=== PATIENT | female | born 1985 | race African-American/Black ===

== ENCOUNTER 2019-10-10 13:19 | Emergency (ER) | payer SELFPAY ==
[2019-10-10] MEDS ORDERED: Ondansetron 4 MG/2 ML SDV IVPUSH ONE (14:00)
[2019-10-10] MEDS ORDERED: Sodium Chloride 0.9% 10 ML Syringe FLUSH PRN (14:00)
[2019-10-10] MEDS ORDERED: Sodium Chloride 0.9% 1,000 ML IV ONE (14:00)
--- NOTE | 2019-10-10 14:04 | EDM.PDOC ---
ED HPI GENERAL MEDICAL PROBLEM - General Chief Complaint: PEDIATRIC PHYSICAL THERAPIST Problem Stated Complaint: WEAK AND VOMNITING NEW Time Seen by Provider: 10/10/19 13:53 Source of Information: Reports: Patient History Limitations: Reports: No Limitations - History of Present Illness INITIAL COMMENTS - FREE TEXT/NARRATIVE: This unfortunate 33-year-old white female who presents emergency Department today with complaints of vomiting. 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 No dysuria no frequency no urgency no vaginal bleeding no abdominal pain no hematemesis - Related Data Allergies Allergy/AdvReac Type Severity Reaction Status Date / Time No Known Allergies Allergy Verified 10/10/19 13:54 Home Meds: Home Meds Ondansetron [Zofran ODT] 4 mg PO TID PRN #8 tab.dis 10/10/19 [Rx] ED ROS GENERAL - Review of Systems Review Of Systems: See Below Constitutional: Denies: Fever, Chills GI/Abdominal: Reports: Nausea, Vomiting. Denies: Abdominal Pain : Denies: Discharge, Urinary Retention ED EXAM, GI/ABD - Physical Exam Exam: See Below Exam Limited By: No Limitations General Appearance: Alert, WD/WN, Mild Distress Nose: Normal Inspection, Normal Mucosa, No Blood Throat/Mouth: Normal Inspection, Normal Lips, Normal Teeth, Normal Gums, Normal Oropharynx, Normal Voice, No Airway Compromise Head: Atraumatic, Normocephalic Respiratory/Chest: No Respiratory Distress, Lungs Clear, Normal Breath Sounds, No Accessory Muscle Use, Chest Non-Tender Cardiovascular: Normal Peripheral Pulses, Regular Rate, Rhythm, No Edema, No Gallop, No JVD, No Murmur, No Rub GI/Abdominal Exam: Normal Bowel Sounds, Soft, Non-Tender, No Organomegaly, No Distention, No Abnormal Bruit, No Mass, Pelvis Stable Back Exam: Normal Inspection, Full Range of Motion, NT Extremities: Normal Inspection, Normal Range of Motion, Non-Tender, Normal Capillary Refill, No Pedal Edema Neurological: Alert, Oriented Skin Exam: Warm, Dry Course - Vital Signs Last Recorded V/S: Last Vital Signs Temp 98.7 F 10/10/19 13:55 Pulse 60 10/10/19 13:55 Resp 18 10/10/19 13:55 BP 116/73 10/10/19 13:55 Pulse Ox 100 10/10/19 13:55 - Orders/Labs/Meds Orders: Active Orders 24 hr Category Date Time Status CULTURE URINE [RM] Stat Lab 10/10/19 14:31 Received Sodium Chloride 0.9% [Saline Flush] Med 10/10/19 14:00 Active 10 ml FLUSH ASDIRECTED PRN Saline Lock Insert [OM.PC] Stat Oth 10/10/19 14:00 Ordered Medication Orders Sodium Chloride (Saline Flush) 10 ml FLUSH ASDIRECTED PRN PRN Reason: Keep Vein Open Last Admin: 10/10/19 14:33 Dose: 10 ml Labs: Laboratory Tests 10/10/19 10/10/19 10/10/19 Range/Units 14:17 14:17 14:31 WBC 4.53 (3.98-10.04) K/mm3 RBC 4.89 (3.98-5.22) M/mm3 Hgb 14.7 (11.2-15.7) gm/dl Hct 41.9 (34.1-44.9) % MCV 85.7 (79.4-94.8) fl MCH 30.1 (25.6-32.2) pg MCHC 35.1 (32.2-35.5) g/dl RDW Std Deviation 36.9 (36.4-46.3) fL Plt Count 334 (182-369) K/mm3 MPV 8.1 L (9.4-12.3) fl Neut % (Auto) 39.9 (34.0-71.1) % Lymph % (Auto) 33.6 (19.3-51.7) % [place] % (Auto) 15.9 H (4.7-12.5) % Eos % (Auto) 10.2 H (0.7-5.8) Baso % (Auto) 0.2 (0.1-1.2) % Neut # (Auto) 1.81 (1.56-6.13) K/mm3 Lymph # (Auto) 1.52 (1.18-3.74) K/mm3 [place] # (Auto) 0.72 H (0.24-0.36) K/mm3 Eos # (Auto) 0.46 H (0.04-0.36) K/mm3 Baso # (Auto) 0.01 (0.01-0.08) K/mm3 Manual Slide Review Abnormal smear Sodium 134 L (136-145) mEq/L Potassium 3.9 (3.5-5.1) mEq/L Chloride 101 (98-107) mEq/L Carbon Dioxide 26 (21-32) mEq/L Anion Gap 10.9 (5-15) BUN 10 (7-18) mg/dL Creatinine 0.8 (0.55-1.02) mg/dL Est Cr Clr Drug Dosing 82.74 mL/min Estimated GFR (MDRD) > 60 (>60) mL/min BUN/Creatinine Ratio 12.5 L (14-18) Glucose 77 (74-106) mg/dL Calcium 9.5 (8.5-10.1) mg/dL Total Bilirubin 0.6 (0.2-1.0) mg/dL AST 14 L (15-37) U/L ALT 19 (14-59) U/L Alkaline Phosphatase 61 (46-116) U/L Total Protein 8.5 H (6.4-8.2) g/dl Albumin 4.1 (3.4-5.0) g/dl Globulin 4.4 gm/dL Albumin/Globulin Ratio 0.9 L (1-2) Urine Color Light yellow (Yellow) Urine Appearance Clear (Clear) Urine pH 6.5 (5.0-8.0) Ur Specific [place] 1.015 (1.005-1.030) Urine Protein Negative (Negative) Urine Glucose (UA) Negative (Negative) Urine Ketones Negative (Negative) Urine Occult Blood Negative (Negative) Urine Nitrite Negative (Negative) Urine Bilirubin Negative (Negative) Urine Urobilinogen 0.2 (0.2-1.0) Ur Leukocyte Esterase 1+ H (Negative) Urine RBC 0-5 (0-5) /hpf Urine WBC 0-5 (0-5) /hpf Ur Squamous Epith Cells 10-20 H (0-5) /hpf Urine Bacteria Rare (FEW) /hpf Urine Mucus Not seen (FEW) /hpf Meds: Medications Generic Name Dose Route Start Last Admin Trade Name Freq PRN Reason Stop Dose Admin Sodium Chloride 10 ml 10/10/19 14:00 10/10/19 14:33 Saline Flush FLUSH 10 ml ASDIRECTED PRN Administration Keep Vein Open Discontinued Medications Generic Name Dose Route Start Last Admin Trade Name Freq PRN Reason Stop Dose Admin Sodium Chloride 1,000 mls @ 1,000 mls/hr 10/10/19 14:00 10/10/19 14:33 Normal Saline IV 10/10/19 14:59 1,000 mls/hr ONETIME ONE Administration Ondansetron HCl 4 mg 10/10/19 14:00 10/10/19 14:33 Zofran IVPUSH 10/10/19 14:01 4 mg ONETIME ONE Administration - Re-Assessments/Exams Free Text/Narrative Re-Assessment/Exam: 10/10/19 15:28 Episodes of vomiting labs show no acute clinically significant abnormalities will discharge to home Departure - Departure Time of Disposition: 15:28 Disposition: Home, Self-Care 01 Clinical Impression: Hyperemesis gravidarum - Discharge Information Prescriptions: Ondansetron [Zofran ODT] 4 mg PO TID PRN #8 tab.dis PRN Reason: Vomiting Referrals: PCP,None [Primary Care Provider] - Marissa Diana MD [Physician] - Forms: ED Department Discharge Additional Instructions: Home, rest, adequate fluids, return as needed for worsening condition Sepsis Event Note - Evaluation Sepsis Screening Result: No Definite Risk - Focused Exam Vital Signs: Vital Signs Temp Pulse Resp BP Pulse Ox 10/10/19 13:55 98.7 F 60 18 116/73 100 Date Exam was Performed: 10/10/19 Time Exam was Performed: 15:28 - My Orders Last 24 Hours: My Active Orders 10/10/19 14:00 Sodium Chloride 0.9% [Saline Flush] 10 ml FLUSH ASDIRECTED PRN Saline Lock Insert [OM.PC] Stat 10/10/19 14:31 CULTURE URINE [RM] Stat - Assessment/Plan Last 24 Hours: My Active Orders 10/10/19 14:00 Sodium Chloride 0.9% [Saline Flush] 10 ml FLUSH ASDIRECTED PRN Saline Lock Insert [OM.PC] Stat 10/10/19 14:31 CULTURE URINE [RM] Stat
== END 2019-10-10 15:40 | disposition home or self-care (01) ==
LOC: JD.ED 13:19
DX: O21.0 Mild hyperemesis gravidarum (principal); Z3A.01 Less than 8 weeks gestation of pregnancy
CPT/HCPCS: 36415; 80053; 81001; 85025; 87086; 96361; 96374; 99284; J2405; J7030; 99283

== ENCOUNTER 2020-05-31 04:34 | Inpatient (IN) | payer BC, OTHER ==
[2020-05-31] MEDS ORDERED: Lidocaine 1% 50 ML MDV INJECT ONE (05:10)
[2020-05-31] MEDS ORDERED: Nalbuphine 10 MG/ML Syringe IVPUSH PRN (05:10)
[2020-05-31] MEDS ORDERED: Sodium Chloride 0.9% 10 ML Syringe FLUSH PRN (05:10)
[2020-05-31] MEDS ORDERED: Ondansetron 4 MG/2 ML SDV IVPUSH PRN ×2 (05:10→06:59)
[2020-05-31] MEDS ORDERED: Oxytocin/Lactated Ringers 10 UNIT/1,000 ML BAG IV SCH (05:15)
[2020-05-31] MEDS ORDERED: Lactated Ringers 1,000 ML IV SCH (05:15)
--- NOTE | 2020-05-31 06:03 | PCM.LDHP ---
L&D History of Present Illness - General Date of Service: 05/31/20 Admit Problem/Dx: Patient Status Order with Admit Dx/Problem 05/31/20 04:49 Patient Status [ADT] Routine 05/31/20 05:14 Patient Status [ADT] Routine Admission Diagnosis/Problem Admission Diagnosis/Problem Source of Information: Patient History Limitations: Reports: No Limitations - History of Present Illness Introduction:: Patient is a 34 y/o at 39 4/7 wks who presents in labor. She started allison overnight. No other issues. 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: , Spontaneous : 3 Para: 1 LMP (Approximate): Social & Family History - Tobacco Use Smoking Status *Q: Never Smoker - Caffeine Use Caffeine Use: Reports: Tea - Alcohol Use Alcohol Use History: No - Recreational Drug Use Recreational Drug Use: No H&P Review of Systems - Review of Systems: Review Of Systems: See Below General: Reports: No Symptoms Pulmonary: Reports: No Symptoms Cardiovascular: Reports: No Symptoms Gastrointestinal: Reports: Abdominal Pain (contractions ) Genitourinary: Reports: No Symptoms Musculoskeletal: Reports: No Symptoms Psychiatric: Reports: No Symptoms Neurological: Reports: No Symptoms L&D Exam - Exam Exam: See Below - OB Specific Contraction Intensity: Moderate to Strong Movement: Active Heart Tones: Present Heart Tones per Min: 135 Heart Rate (FHR) Variability: Moderate (6-25 bmp) Presentation: Vertex - Arzola Score Arzola Score Cervix Position: Anterior Arzola Score Consistency: Soft Arzola Score Effacement: >80% Arzola Score Dilation: > 5 cm Arzola Score Infant's Station: -2 Arzola Score Total: 11 - Exam General: Alert, Oriented, Cooperative Lungs: Clear to Auscultation, Normal Respiratory Effort Cardiovascular: Regular Rate, Regular Rhythm GI/Abdominal Exam: Soft, Non-Tender Genitourinary: Normal external exam Extremities: Normal Inspection Skin: Warm, Dry, Intact - Patient Data Result Diagrams: 05/31/20 05:29 - Problem List (1) 39 weeks gestation of SNOMED Code(s): 98678205 ICD Code: Z3A.39 - 39 WEEKS GESTATION OF Status: Acute Current Visit: Yes (2) Normal labor SNOMED Code(s): 45030252 ICD Code: O80 - ENCOUNTER FOR FULL-TERM UNCOMPLICATED DELIVERY; Z37.9 - OUTCOME OF DELIVERY, UNSPECIFIED Status: Acute Current Visit: Yes Problem List Initiated/Reviewed/Updated: Yes Orders Last 24hrs: Active Orders 24 hr Category Date Time Status Patient Status [ADT] Routine ADT 05/31/20 05:14 Active Activity as Tolerated [RC] PFP Care 05/31/20 05:10 Active Communication Order [RC] ASDIRECTED Care 05/31/20 05:10 Active Heart Tones [RC] ASDIRECTED Care 05/31/20 05:10 Active Non Stress Test [RC] PER UNIT ROUTINE Care 05/31/20 04:49 Active Notify Provider [RC] PFP Care 05/31/20 05:10 Active Notify Provider [RC] PRN Care 05/31/20 05:10 Active Peripheral IV Care [RC] . DIRECTED Care 05/31/20 05:10 Active Urinary Catheter Assessment [RC] ASDIRECTED Care 05/31/20 05:10 Active Vital Signs [RC] PER UNIT ROUTINE Care 05/31/20 04:49 Active Regular Diet [DIET] Diet 05/31/20 Breakfast Active CBC WITH AUTO DIFF [HEME] Stat Lab 05/31/20 05:29 Received RAPID PLASMA REAGIN,RPR [CHEM] Routine Lab 05/31/20 05:29 Received Lactated Ringers [Ringers, Lactated] 1,000 ml Med 05/31/20 05:15 Active IV ASDIRECTED Nalbuphine [Nubain] Med 05/31/20 05:10 Active 10 mg IVPUSH Q2H PRN Ondansetron [Zofran] Med 05/31/20 05:10 Active 4 mg IVPUSH Q4H PRN Oxytocin/Lactated Ringers [Pitocin in LR 10 Units/1,000 Med 05/31/20 05:15 Active ML] 10 unit in 1,000 ml IV .CONTINUOUS Sodium Chloride 0.9% [Saline Flush] Med 05/31/20 05:10 Active 10 ml FLUSH ASDIRECTED PRN Electronic Heart Tones Ext w TOCO [WOMSER] Oth 05/31/20 05:10 Ordered Routine Electronic Heart Tones Internal [WOMSER] Per Unit Ot 05/31/20 05:10 Ordered Routine Peripheral IV Insertion Adult [OM.PC] Routine Oth 05/31/20 05:10 Ordered Resuscitation Status Routine Resus Stat 05/31/20 04:49 Ordered Medication Orders Lactated Ringer's (Ringers, Lactated) 1,000 mls @ 100 mls/hr IV ASDIRECTED HETAL Oxytocin/Lactated Ringer's (Pitocin In Lr 10 Units/1,000 Ml) 10 unit in 1,000 mls @ 100 mls/hr IV .CONTINUOUS HETAL; Protocol Nalbuphine HCl (Nubain) 10 mg IVPUSH Q2H PRN PRN Reason: Pain Ondansetron HCl (Zofran) 4 mg IVPUSH Q4H PRN PRN Reason: Nausea/Vomiting Sodium Chloride (Saline Flush) 10 ml FLUSH ASDIRECTED PRN PRN Reason: Keep Vein Open Assessment/Plan Comment:: * Labs done * GBS negative * Pain management per patient preference * Anticipate
[2020-05-31] MEDS ORDERED: fentaNYL 100 MCG/2 ML SDV EPIDUR PRN (06:59)
[2020-05-31] MEDS ORDERED: ePHEDrine 50 MG/ML SDV IVPUSH PRN (06:59)
[2020-05-31] MEDS ORDERED: Phenylephrine 1 MG in Sodium Chloride 0.9% 10 ML IV PRN (07:00)
[2020-05-31] MEDS ORDERED: Bupivacaine/fentaNYL/NS 100 ML Bag EPIDUR SCH (07:00)
--- NOTE | 2020-05-31 07:02 | PCM.PREANE ---
Preanesthetic Assessment - Anesthesia/Transfusion/Family Hx Anesthesia History: No Prior Anesthesia Family History of Anesthesia Reaction: No Transfusion History: No Prior Transfusion(s) Intubation History: Unknown - Review of Systems Gastrointestinal: Nausea - Physical Assessment NPO Status Date: 05/31/20 Vital Signs: HR: Sat: Temp: B/P: Resp: Height: 1.65 m Weight: 75.478 kg ASA Class: 2 Mental Status: Alert & Oriented x3 - Lab Values: Laboratory Last Values WBC 9.65 K/mm3 (3.98-10.04) 05/31/20 05:29 RBC 4.74 M/mm3 (3.98-5.22) 05/31/20 05:29 Hgb 13.5 gm/dl (11.2-15.7) 05/31/20 05:29 Hct 41.6 % (34.1-44.9) 05/31/20 05:29 MCV 87.8 fl (79.4-94.8) 05/31/20 05:29 MCH 28.5 pg (25.6-32.2) 05/31/20 05:29 MCHC 32.5 g/dl (32.2-35.5) 05/31/20 05:29 RDW Std Deviation 52.7 fL (36.4-46.3) H 05/31/20 05:29 Plt Count 214 K/mm3 (182-369) D 05/31/20 05:29 MPV 9.5 fl (9.4-12.3) 05/31/20 05:29 Neut % (Auto) 73.0 % (34.0-71.1) H 05/31/20 05:29 Lymph % (Auto) 12.1 % (19.3-51.7) L 05/31/20 05:29 [place] % (Auto) 11.5 % (4.7-12.5) 05/31/20 05:29 Eos % (Auto) 2.7 (0.7-5.8) 05/31/20 05:29 Baso % (Auto) 0.1 % (0.1-1.2) 05/31/20 05:29 Neut # (Auto) 7.04 K/mm3 (1.56-6.13) H 05/31/20 05:29 Lymph # (Auto) 1.17 K/mm3 (1.18-3.74) L 05/31/20 05:29 [place] # (Auto) 1.11 K/mm3 (0.24-0.36) H 05/31/20 05:29 Eos # (Auto) 0.26 K/mm3 (0.04-0.36) 05/31/20 05:29 Baso # (Auto) 0.01 K/mm3 (0.01-0.08) 05/31/20 05:29 COVID-19 (PHILLIP) Negative (NEGATIVE) 05/31/20 06:05 Above labs reviewed and noted and within acceptable ranges to proceed with epidural if desired. - Allergies Allergies/Adverse Reactions: Allergies Allergy/AdvReac Type Severity Reaction Status Date / Time No Known Allergies Allergy Verified 10/10/19 13:54 - Anesthesia Plan Pre-Op Medication Ordered: None - Acknowledgements Anesthesia Type Planned: Epidural Pt an Appropriate Candidate for the Planned Anesthesia: Yes Alternatives and Risks of Anesthesia Discussed w Pt/Guardian: Yes Pt/Guardian Understands and Agrees with Anesthesia Plan: Yes PreAnesthesia Questionnaire - Past Health History Medical/Surgical History: Denies Medical/Surgical History Gastrointestinal History: Reports: Hemorrhoids, Other (See Below) Other Gastrointestinal History: Peptic ulcer 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: , Spontaneous Other OB/BYN History: Miscarriage 12/2018 Hematologic History: Reports: Anemia - SUBSTANCE USE Smoking Status *Q: Never Smoker Second Hand Smoke Exposure: No Recreational Drug Use History: No - HOME MEDS Home Medications: Home Meds Ondansetron [Zofran ODT] 4 mg PO TID PRN #8 tab.dis 10/10/19 [Rx] - CURRENT (IN HOUSE) MEDS Current Meds: Current Medications Lactated Ringer's (Ringers, Lactated) 1,000 mls @ 100 mls/hr IV ASDIRECTED HETAL Oxytocin/Lactated Ringer's (Pitocin In Lr 10 Units/1,000 Ml) 10 unit in 1,000 mls @ 100 mls/hr IV .CONTINUOUS HETAL; Protocol Nalbuphine HCl (Nubain) 10 mg IVPUSH Q2H PRN PRN Reason: Pain Ondansetron HCl (Zofran) 4 mg IVPUSH Q4H PRN PRN Reason: Nausea/Vomiting Sodium Chloride (Saline Flush) 10 ml FLUSH ASDIRECTED PRN PRN Reason: Keep Vein Open Discontinued Medications Lidocaine HCl (Xylocaine 1%) 50 ml INJECT ONETIME ONE Stop: 05/31/20 05:11
--- NOTE | 2020-05-31 07:13 | PCM.PREANE ---
Preanesthetic Assessment - Anesthesia/Transfusion/Family Hx Anesthesia History: No Prior Anesthesia Family History of Anesthesia Reaction: No Transfusion History: No Prior Transfusion(s) Intubation History: Unknown - Review of Systems Gastrointestinal: Nausea - Physical Assessment NPO Status Date: 05/31/20 Vital Signs: Last Vital Signs Temp 36.6 C 05/31/20 04:49 Pulse 92 05/31/20 04:49 Resp 16 05/31/20 04:49 BP 126/66 05/31/20 04:49 Pulse Ox Height: 1.65 m Weight: 75.478 kg ASA Class: 2 Mental Status: Alert & Oriented x3 - Lab Values: Laboratory Last Values WBC 9.65 K/mm3 (3.98-10.04) 05/31/20 05:29 RBC 4.74 M/mm3 (3.98-5.22) 05/31/20 05:29 Hgb 13.5 gm/dl (11.2-15.7) 05/31/20 05:29 Hct 41.6 % (34.1-44.9) 05/31/20 05:29 MCV 87.8 fl (79.4-94.8) 05/31/20 05:29 MCH 28.5 pg (25.6-32.2) 05/31/20 05:29 MCHC 32.5 g/dl (32.2-35.5) 05/31/20 05:29 RDW Std Deviation 52.7 fL (36.4-46.3) H 05/31/20 05:29 Plt Count 214 K/mm3 (182-369) D 05/31/20 05:29 MPV 9.5 fl (9.4-12.3) 05/31/20 05:29 Neut % (Auto) 73.0 % (34.0-71.1) H 05/31/20 05:29 Lymph % (Auto) 12.1 % (19.3-51.7) L 05/31/20 05:29 [place] % (Auto) 11.5 % (4.7-12.5) 05/31/20 05:29 Eos % (Auto) 2.7 (0.7-5.8) 05/31/20 05:29 Baso % (Auto) 0.1 % (0.1-1.2) 05/31/20 05:29 Neut # (Auto) 7.04 K/mm3 (1.56-6.13) H 05/31/20 05:29 Lymph # (Auto) 1.17 K/mm3 (1.18-3.74) L 05/31/20 05:29 [place] # (Auto) 1.11 K/mm3 (0.24-0.36) H 05/31/20 05:29 Eos # (Auto) 0.26 K/mm3 (0.04-0.36) 05/31/20 05:29 Baso # (Auto) 0.01 K/mm3 (0.01-0.08) 05/31/20 05:29 COVID-19 (PHILLIP) Negative (NEGATIVE) 05/31/20 06:05 Above labs reviewed and noted and within acceptable ranges to proceed with epidural if desired. - Allergies Allergies/Adverse Reactions: Allergies Allergy/AdvReac Type Severity Reaction Status Date / Time No Known Allergies Allergy Verified 10/10/19 13:54 - Anesthesia Plan Pre-Op Medication Ordered: None - Acknowledgements Anesthesia Type Planned: Epidural Pt an Appropriate Candidate for the Planned Anesthesia: Yes Alternatives and Risks of Anesthesia Discussed w Pt/Guardian: Yes Pt/Guardian Understands and Agrees with Anesthesia Plan: Yes PreAnesthesia Questionnaire - Past Health History Medical/Surgical History: Denies Medical/Surgical History Gastrointestinal History: Reports: Hemorrhoids, Other (See Below) Other Gastrointestinal History: Peptic ulcer [employer] History: Reports: , Spontaneous Other OB/BYN History: Miscarriage 12/2018 Hematologic History: Reports: Anemia - SUBSTANCE USE Smoking Status *Q: Never Smoker Second Hand Smoke Exposure: No Recreational Drug Use History: No - HOME MEDS Home Medications: Home Meds Ondansetron [Zofran ODT] 4 mg PO TID PRN #8 tab.dis 10/10/19 [Rx] - CURRENT (IN HOUSE) MEDS Current Meds: Current Medications Ephedrine Sulfate (Ephedrine Sulfate) 5 mg IVPUSH ASDIRECTED PRN PRN Reason: Hypotension Fentanyl (Sublimaze) 100 mcg EPIDUR Q3H PRN PRN Reason: Pain Fentanyl/Bupivacaine HCl (Fentanyl/Bupivacaine/Ns 2 Mcg-0.125% 100 Ml) 100 ml EPIDUR ASDIRECTED HETAL Lactated Ringer's (Ringers, Lactated) 1,000 mls @ 100 mls/hr IV ASDIRECTED HETAL Oxytocin/Lactated Ringer's (Pitocin In Lr 10 Units/1,000 Ml) 10 unit in 1,000 mls @ 100 mls/hr IV .CONTINUOUS HETAL; Protocol Phenylephrine HCl 1 mg/ Sodium (Chloride) 10.1 mls @ 1 mls/sec IV TITRATE PRN; Protocol PRN Reason: SEE COMMENT Nalbuphine HCl (Nubain) 10 mg IVPUSH Q2H PRN PRN Reason: Pain Ondansetron HCl (Zofran) 4 mg IVPUSH Q4H PRN PRN Reason: Nausea/Vomiting Ondansetron HCl (Zofran) 4 mg IVPUSH ONETIME PRN PRN Reason: Nausea/Vomiting Sodium Chloride (Saline Flush) 10 ml FLUSH ASDIRECTED PRN PRN Reason: Keep Vein Open Discontinued Medications Lidocaine HCl (Xylocaine 1%) 50 ml INJECT ONETIME ONE Stop: 05/31/20 05:11
[2020-05-31] MEDS ORDERED: Misoprostol 200 MCG Tab PO ONE (08:21)
[2020-05-31] MEDS: Misoprostol 200 MCG Tab ONE ×2 (08:26→08:42)
[2020-05-31] MEDS: Methylergonovine 0.2 MG/1 ML Amp ONE ×2 (08:28→08:43)
--- NOTE | 2020-05-31 09:23 | PCM.DEL ---
L & D Note - General Info Date of Service: 05/31/20 - Delivery Note Labor: Spontaneous Delivery Outcome: Livebirth Delivery Method: Spontaneous Vaginal Delivery-Single Delivery Mode: Spontaneous Presentation: Right Occiput Anterior (JUAN MIGUEL) Nuchal Cord: None Anesthesia Type: None Amniotic Fluid Description: Meconium Stained Episiotomy Type: None Laceration: 2nd Degree Suture type: Vicryl Suture size: 2-0 Placenta: Intact, Spontaneous Cord: 3 Vessels Estimated Blood Loss: 500 Resuscitation Needed: Yes : Bulb Syringe, Stimulated, Warmed, [place] Used, Warmer Used Delivery Comments (Free Text/Narrative):: Patient found to be complete and began pushing. With maternal pushing effort head delivered from JUAN MIGUEL presentation. No nuchal cord present. With gentle downward traction shoulders and body delivered. Infant placed on maternal abdomen. Cord clamped and cut. Cord blood obtained. Placenta allowed time to separate and expelled intact. Inspection of perineum showed a small 2nd degree laceration which was repaired with a running 2-0 Vicryl. Afterward had moderate flow and so given 600 mcg of Cytotec and 0.2 mg of IM methergine. - General Info Date of Service: 05/31/20 - Patient Data Vitals - Most Recent: Last Vital Signs Temp 36.6 C 05/31/20 04:49 Pulse 92 05/31/20 04:49 Resp 16 05/31/20 04:49 BP 126/66 05/31/20 04:49 Pulse Ox Weight - Most Recent: 75.478 kg - Problem List & Annotations (1) 39 weeks gestation of SNOMED Code(s): 17831004 Code(s): Z3A.39 - 39 WEEKS GESTATION OF Status: Acute Current Visit: Yes (2) Normal labor SNOMED Code(s): 24019821 Code(s): O80 - ENCOUNTER FOR FULL-TERM UNCOMPLICATED DELIVERY; Z37.9 - OUTCOME OF DELIVERY, UNSPECIFIED Status: Acute Current Visit: Yes (3) Vaginal delivery SNOMED Code(s): 556322610 Code(s): O80 - ENCOUNTER FOR FULL-TERM UNCOMPLICATED DELIVERY Status: Acute Current Visit: Yes - Problem List Review Problem List Initiated/Reviewed/Updated: Yes - My Orders Last 24 Hours: My Active Orders 05/31/20 04:49 Vital Signs [RC] 03,09,15,21 Resuscitation Status Routine 05/31/20 05:10 Activity as Tolerated [RC] PFP Communication Order [RC] ASDIRECTED Heart Tones [RC] ASDIRECTED Notify Provider [RC] PFP Notify Provider [RC] PRN Peripheral IV Care [RC] . DIRECTED Urinary Catheter Assessment [RC] ASDIRECTED Nalbuphine [Nubain] 10 mg IVPUSH Q2H PRN Ondansetron [Zofran] 4 mg IVPUSH Q4H PRN Sodium Chloride 0.9% [Saline Flush] 10 ml FLUSH ASDIRECTED PRN Electronic Heart Tones Ext w TOCO [WOMSER] Routine Electronic Heart Tones Internal [WOMSER] Per Unit Routine Peripheral IV Insertion Adult [OM.PC] Routine 05/31/20 05:14 Patient Status [ADT] Routine 05/31/20 05:15 Lactated Ringers [Ringers, Lactated] 1,000 ml IV ASDIRECTED Oxytocin/Lactated Ringers [Pitocin in LR 10 Units/1,000 ML] 10 unit in 1,000 ml IV .CONTINUOUS 05/31/20 05:29 RAPID PLASMA REAGIN,RPR [CHEM] Routine 05/31/20 Breakfast Regular Diet [DIET] 05/31/20 09:21 Patient Status Manage Transfer [TRANSFER] Routine - Assessment Assessment:: PPD#0 - Plan Plan:: * Routine cares * Breast feeding * S/p Cytotec and Methergine. Monitor bleeding closely * Discharge home in 1-2 days
[2020-05-31] MEDS: Ibuprofen 600 MG Tab PO PRN ×2 (10:49→20:09)
[2020-05-31] MEDS: Docusate Sodium 100 MG Cap PO PRN (10:49)
[2020-05-31] MEDS: Benzocaine/Menthol 20%-0.5% Spray 56 GM Canister TOP PRN (10:50)
[2020-05-31] MEDS: Witch Hazel Medicated Pads 40/Jar TOP PRN (10:50)
[2020-05-31] MEDS: Acetaminophen 325 MG Tab PO PRN ×2 (15:23→23:38)
[2020-06-01] MEDS: Acetaminophen 325 MG Tab PO PRN ×2 (04:46→14:19)
--- NOTE | 2020-06-01 06:42 | PCM.DCSUM1 ---
Discharge Summary - Discharge Data Discharge Date: 06/02/20 Discharge Disposition: Home, Self-Care 01 Condition: Good - Referral to Home Health Primary Care Physician: Jayla Lara MD - Discharge Diagnosis/Problem(s) (1) 39 weeks gestation of SNOMED Code(s): 55306722 ICD Code: Z3A.39 - 39 WEEKS GESTATION OF Status: Acute Current Visit: Yes (2) Normal labor SNOMED Code(s): 97457402 ICD Code: O80 - ENCOUNTER FOR FULL-TERM UNCOMPLICATED DELIVERY; Z37.9 - OUTCOME OF DELIVERY, UNSPECIFIED Status: Acute Current Visit: Yes (3) Vaginal delivery SNOMED Code(s): 442933043 ICD Code: O80 - ENCOUNTER FOR FULL-TERM UNCOMPLICATED DELIVERY Status: Acute Current Visit: Yes - Patient Summary/Data Complications: NOne Consults: NOne Recommended Follow-up Testing/Procedures: Follow up in 3 weeks for check Hospital Course: 34 y/o at 39 4/7 wks who presented in labor. Progressed well and u nderwent an uncomplicated . See delivery note. did well and was discharged home on PPD#2 - Patient Instructions Diet: Regular Diet as Tolerated Activity: As Tolerated Activity, Other: Pelvic rest for 6 weeks Driving: May Drive Today Showering/Bathing: May Shower Showering/Bathing, Other: May Bathe Notify Provider of: Fever, Increased Pain, Swelling and Redness, Drainage, Nausea and/or Vomiting - Discharge Plan *PRESCRIPTION DRUG MONITORING PROGRAM REVIEWED*: No *COPY OF PRESCRIPTION DRUG MONITORING REPORT IN PATIENT MELLISA: No Home Medications: Home Meds Docusate Sodium [Colace] 100 mg PO BID PRN cap 05/31/20 [Rx] Ibuprofen [Motrin] 600 mg PO Q6H PRN tablet 05/31/20 [Rx] Vit/FA/Fe Fumarate/Se [ MTR] 1 tab PO DAILY 05/31/20 [History] Referrals: Jayla Lara MD [Primary Care Provider] - (3 weeks for check ) - Discharge Summary/Plan Comment DC Time >30 min.: No - Patient Data Vitals - Most Recent: Last Vital Signs Temp 36.6 C 06/01/20 03:00 Pulse 80 06/01/20 03:00 Resp 16 06/01/20 03:00 BP 120/75 06/01/20 03:00 Pulse Ox 100 06/01/20 03:00 Weight - Most Recent: 75.478 kg I&O - Last 24 hours: Intake & Output 05/31/20 05/31/20 06/01/20 14:59 22:59 06:59 Intake Total 1999 Balance 1999 Lab Results - Last 24 hrs: Laboratory Results - last 24 hr 05/31/20 Range/Units 05:29 RPR Non-reactive (NONREACTIVE) Med Orders - Current: Current Medications Acetaminophen (Tylenol) 650 mg PO Q4H PRN PRN Reason: mild pain or fever Last Admin: 06/01/20 04:46 Dose: 650 mg Documented by: Benzocaine/Menthol (Dermoplast Pain Relief [place]) 0 gm TOP ASDIRECTED PRN PRN Reason: Perineal Comfort Measure Last Admin: 05/31/20 10:50 Dose: 1 jar Documented by: Docusate Sodium (Colace) 100 mg PO BID PRN PRN Reason: Constipation Last Admin: 05/31/20 10:49 Dose: 100 mg Documented by: Ibuprofen (Motrin) 600 mg PO Q6H PRN PRN Reason: Mild pain or fever Last Admin: 05/31/20 20:09 Dose: 600 mg Documented by: Harvey Viramontes ([facility] 1 pad TOP ASDIRECTED PRN PRN Reason: Perineal Comfort Measure Last Admin: 05/31/20 10:50 Dose: 1 can Documented by: Discontinued Medications Ephedrine Sulfate (Ephedrine Sulfate) 5 mg IVPUSH ASDIRECTED PRN PRN Reason: Hypotension Fentanyl (Sublimaze) 100 mcg EPIDUR Q3H PRN PRN Reason: Pain Fentanyl/Bupivacaine HCl (Fentanyl/Bupivacaine/Ns 2 Mcg-0.125% 100 Ml) 100 ml EPIDUR ASDIRECTED HETAL Lactated Ringer's (Ringers, Lactated) 1,000 mls @ 100 mls/hr IV ASDIRECTED HETAL Last Admin: 05/31/20 11:15 Dose: 100 mls/hr Documented by: Oxytocin/Lactated Ringer's (Pitocin In Lr 10 Units/1,000 Ml) 10 unit in 1,000 mls @ 100 mls/hr IV .CONTINUOUS HETAL; Protocol Last Admin: 05/31/20 08:06 Dose: 100 mls/hr Documented by: Phenylephrine HCl 1 mg/ Sodium (Chloride) 10.1 mls @ 1 mls/sec IV TITRATE PRN; Protocol PRN Reason: SEE COMMENT Lidocaine HCl (Xylocaine 1%) 50 ml INJECT ONETIME ONE Stop: 05/31/20 05:11 Methylergonovine Maleate (Methergine) Confirm Administered Dose 0.2 mg .ROUTE .STK-MED ONE Stop: 05/31/20 08:27 Last Admin: 05/31/20 08:43 Dose: 0.2 mg Documented by: Misoprostol (Cytotec) 600 mcg PO ONETIME ONE Stop: 05/31/20 08:22 Misoprostol (Cytotec) Confirm Administered Dose 600 mcg .ROUTE .STK-MED ONE Stop: 05/31/20 08:22 Last Admin: 05/31/20 08:42 Dose: 600 mcg Documented by: Nalbuphine HCl (Nubain) 10 mg IVPUSH Q2H PRN PRN Reason: Pain Ondansetron HCl (Zofran) 4 mg IVPUSH Q4H PRN PRN Reason: Nausea/Vomiting Ondansetron HCl (Zofran) 4 mg IVPUSH ONETIME PRN PRN Reason: Nausea/Vomiting Sodium Chloride (Saline Flush) 10 ml FLUSH ASDIRECTED PRN PRN Reason: Keep Vein Open
--- NOTE | 2020-06-01 06:42 | PCM.PNPP ---
- General Info Date of Service: 06/01/20 Functional Status: Reports: Pain Controlled, Tolerating Diet, Ambulating, Urinating - Review of Systems General: Reports: No Symptoms Pulmonary: Reports: No Symptoms Cardiovascular: Reports: No Symptoms Gastrointestinal: Reports: No Symptoms Genitourinary: Reports: No Symptoms Musculoskeletal: Reports: No Symptoms - General Info Date of Service: 06/01/20 - Patient Data Vital Signs - Most Recent: Last Vital Signs Temp 36.6 C 06/01/20 03:00 Pulse 80 06/01/20 03:00 Resp 16 06/01/20 03:00 BP 120/75 06/01/20 03:00 Pulse Ox 100 06/01/20 03:00 Weight - Most Recent: 75.478 kg I&O - Last 24 Hours: Intake & Output 05/31/20 05/31/20 06/01/20 14:59 22:59 06:59 Intake Total 1999 Balance 1999 Lab Results - Last 24 Hours: Laboratory Results - last 24 hr 05/31/20 Range/Units 05:29 RPR Non-reactive (NONREACTIVE) Med Orders - Current: Current Medications Acetaminophen (Tylenol) 650 mg PO Q4H PRN PRN Reason: mild pain or fever Last Admin: 06/01/20 04:46 Dose: 650 mg Documented by: Benzocaine/Menthol (Dermoplast Pain Relief [place]) 0 gm TOP ASDIRECTED PRN PRN Reason: Perineal Comfort Measure Last Admin: 05/31/20 10:50 Dose: 1 jar Documented by: Docusate Sodium (Colace) 100 mg PO BID PRN PRN Reason: Constipation Last Admin: 05/31/20 10:49 Dose: 100 mg Documented by: Ibuprofen (Motrin) 600 mg PO Q6H PRN PRN Reason: Mild pain or fever Last Admin: 05/31/20 20:09 Dose: 600 mg Documented by: Harvey Viramontes ([facility]) 1 pad TOP ASDIRECTED PRN PRN Reason: Perineal Comfort Measure Last Admin: 05/31/20 10:50 Dose: 1 can Documented by: Discontinued Medications Ephedrine Sulfate (Ephedrine Sulfate) 5 mg IVPUSH ASDIRECTED PRN PRN Reason: Hypotension Fentanyl (Sublimaze) 100 mcg EPIDUR Q3H PRN PRN Reason: Pain Fentanyl/Bupivacaine HCl (Fentanyl/Bupivacaine/Ns 2 Mcg-0.125% 100 Ml) 100 ml EPIDUR ASDIRECTED HETAL Lactated Ringer's (Ringers, Lactated) 1,000 mls @ 100 mls/hr IV ASDIRECTED HETAL Last Admin: 05/31/20 11:15 Dose: 100 mls/hr Documented by: Oxytocin/Lactated Ringer's (Pitocin In Lr 10 Units/1,000 Ml) 10 unit in 1,000 mls @ 100 mls/hr IV .CONTINUOUS HETAL; Protocol Last Admin: 05/31/20 08:06 Dose: 100 mls/hr Documented by: Phenylephrine HCl 1 mg/ Sodium (Chloride) 10.1 mls @ 1 mls/sec IV TITRATE PRN; Protocol PRN Reason: SEE COMMENT Lidocaine HCl (Xylocaine 1%) 50 ml INJECT ONETIME ONE Stop: 05/31/20 05:11 Methylergonovine Maleate (Methergine) Confirm Administered Dose 0.2 mg .ROUTE .STK-MED ONE Stop: 05/31/20 08:27 Last Admin: 05/31/20 08:43 Dose: 0.2 mg Documented by: Misoprostol (Cytotec) 600 mcg PO ONETIME ONE Stop: 05/31/20 08:22 Misoprostol (Cytotec) Confirm Administered Dose 600 mcg .ROUTE .STK-MED ONE Stop: 05/31/20 08:22 Last Admin: 05/31/20 08:42 Dose: 600 mcg Documented by: Nalbuphine HCl (Nubain) 10 mg IVPUSH Q2H PRN PRN Reason: Pain Ondansetron HCl (Zofran) 4 mg IVPUSH Q4H PRN PRN Reason: Nausea/Vomiting Ondansetron HCl (Zofran) 4 mg IVPUSH ONETIME PRN PRN Reason: Nausea/Vomiting Sodium Chloride (Saline Flush) 10 ml FLUSH ASDIRECTED PRN PRN Reason: Keep Vein Open - Infant Interaction Disposition, : [place] in Room with Family Interaction: Holding Infant Feeding: Breastfed Infant; Nursed Well Support Person: - Recovery Exam Fundal Tone: Firm Fundal Level: 1 Fingerbreadths Below Umbilicus Fundal Placement: Midline Lochia Amount: Small Lochia Color: Rubra/Red Perineum Description: Intact, Minimal Bruising/Swelling Other Perinuem Description: 2nd degree laceration with repair Episiotomy/Laceration: None Bladder Status: Voiding Urinary Elimination: Voided - Exam General: Alert, Oriented, Cooperative GI/Abdominal Exam: Soft, Non-Tender Extremities: Normal Inspection Skin: Warm, Dry, Intact - Problem List & Annotations (1) 39 weeks gestation of SNOMED Code(s): 08731093 Code(s): Z3A.39 - 39 WEEKS GESTATION OF Status: Acute Current Visit: Yes (2) Normal labor SNOMED Code(s): 41383483 Code(s): O80 - ENCOUNTER FOR FULL-TERM UNCOMPLICATED DELIVERY; Z37.9 - OUTCOME OF DELIVERY, UNSPECIFIED Status: Acute Current Visit: Yes (3) Vaginal delivery SNOMED Code(s): 631213224 Code(s): O80 - ENCOUNTER FOR FULL-TERM UNCOMPLICATED DELIVERY Status: Acute Current Visit: Yes - Problem List Review Problem List Initiated/Reviewed/Updated: Yes - My Orders Last 24 Hours: My Active Orders 05/31/20 Breakfast Regular Diet [DIET] 05/31/20 10:33 Acetaminophen [Tylenol] 650 mg PO Q4H PRN Benzocaine/Menthol [Dermoplast Pain Relief [place]] See Dose Instructions TOP ASDIRECTED PRN Docusate Sodium [Colace] 100 mg PO BID PRN Ibuprofen [Motrin] 600 mg PO Q6H PRN witch [place] [Tucks] 1 pad TOP ASDIRECTED PRN Heat Therapy [OM.PC] PRN 05/31/20 10:33 Activity as Tolerated [RC] PER UNIT ROUTINE Vital Signs [RC] 03,09,15,21 Assess Lochia [WOMSER] Per Unit Routine Assess Uterine Involution [WOMSER] Per Unit Routine Breast Pump [WOMSER] Per Unit Routine Ice Therapy [OM.PC] Per Unit Routine Perineal Care [OM.PC] Per Unit Routine Peripheral IV Discontinue [OM.PC] Routine Sitz Bath [OM.PC] Per Unit Routine 06/01/20 06:42 Ready for Discharge [RC] PER UNIT ROUTINE 06/01/20 10:33 Heat Therapy [OM.PC] PRN - Assessment Assessment:: PPD#1 - Plan Plan:: * Routine cares * Breast feeding * Discharge home tomorrow
[2020-06-01] MEDS: Ibuprofen 600 MG Tab PO PRN ×3 (09:54→23:31)
[2020-06-01] MEDS: Witch Hazel Medicated Pads 40/Jar TOP PRN (14:18)
[2020-06-01] MEDS: Docusate Sodium 100 MG Cap PO PRN (23:30)
[2020-06-02] MEDS: Acetaminophen 325 MG Tab PO PRN (02:45)
--- NOTE | 2020-06-02 05:35 | PCM.PNPP ---
- General Info Date of Service: 06/02/20 Functional Status: Reports: Pain Controlled, Tolerating Diet, Ambulating, Urinating - Review of Systems General: Reports: No Symptoms Pulmonary: Reports: No Symptoms Cardiovascular: Reports: No Symptoms Gastrointestinal: Reports: No Symptoms Genitourinary: Reports: No Symptoms Musculoskeletal: Reports: No Symptoms - Patient Data Vital Signs - Most Recent: Last Vital Signs Temp 36.7 C 06/02/20 02:45 Pulse 75 06/02/20 02:45 Resp 14 06/02/20 02:45 BP 108/63 06/02/20 02:45 Pulse Ox 100 06/02/20 02:45 Weight - Most Recent: 75.478 kg Med Orders - Current: Current Medications Acetaminophen (Tylenol) 650 mg PO Q4H PRN PRN Reason: mild pain or fever Last Admin: 06/02/20 02:45 Dose: 650 mg Documented by: Benzocaine/Menthol (Dermoplast Pain Relief [place]) 0 gm TOP ASDIRECTED PRN PRN Reason: Perineal Comfort Measure Last Admin: 05/31/20 10:50 Dose: 1 jar Documented by: Docusate Sodium (Colace) 100 mg PO BID PRN PRN Reason: Constipation Last Admin: 06/01/20 23:30 Dose: 100 mg Documented by: Ibuprofen (Motrin) 600 mg PO Q6H PRN PRN Reason: Mild pain or fever Last Admin: 06/01/20 23:31 Dose: 600 mg Documented by: Harvey Viramontes (Tucks) 1 pad TOP ASDIRECTED PRN PRN Reason: Perineal Comfort Measure Last Admin: 06/01/20 14:18 Dose: 1 can Documented by: Discontinued Medications Ephedrine Sulfate (Ephedrine Sulfate) 5 mg IVPUSH ASDIRECTED PRN PRN Reason: Hypotension Fentanyl (Sublimaze) 100 mcg EPIDUR Q3H PRN PRN Reason: Pain Fentanyl/Bupivacaine HCl (Fentanyl/Bupivacaine/Ns 2 Mcg-0.125% 100 Ml) 100 ml EPIDUR ASDIRECTED HETAL Lactated Ringer's (Ringers, Lactated) 1,000 mls @ 100 mls/hr IV ASDIRECTED HETAL Last Admin: 05/31/20 11:15 Dose: 100 mls/hr Documented by: Oxytocin/Lactated Ringer's (Pitocin In Lr 10 Units/1,000 Ml) 10 unit in 1,000 mls @ 100 mls/hr IV .CONTINUOUS HETAL; Protocol Last Admin: 05/31/20 08:06 Dose: 100 mls/hr Documented by: Phenylephrine HCl 1 mg/ Sodium (Chloride) 10.1 mls @ 1 mls/sec IV TITRATE PRN; Protocol PRN Reason: SEE COMMENT Lidocaine HCl (Xylocaine 1%) 50 ml INJECT ONETIME ONE Stop: 05/31/20 05:11 Last Admin: 06/01/20 10:51 Dose: Not Given Documented by: Methylergonovine Maleate (Methergine) Confirm Administered Dose 0.2 mg .ROUTE .STK-MED ONE Stop: 05/31/20 08:27 Last Admin: 05/31/20 08:43 Dose: 0.2 mg Documented by: Misoprostol (Cytotec) 600 mcg PO ONETIME ONE Stop: 05/31/20 08:22 Last Admin: 06/01/20 10:51 Dose: Not Given Documented by: Misoprostol (Cytotec) Confirm Administered Dose 600 mcg .ROUTE .STK-MED ONE Stop: 05/31/20 08:22 Last Admin: 05/31/20 08:42 Dose: 600 mcg Documented by: Nalbuphine HCl (Nubain) 10 mg IVPUSH Q2H PRN PRN Reason: Pain Ondansetron HCl (Zofran) 4 mg IVPUSH Q4H PRN PRN Reason: Nausea/Vomiting Ondansetron HCl (Zofran) 4 mg IVPUSH ONETIME PRN PRN Reason: Nausea/Vomiting Sodium Chloride (Saline Flush) 10 ml FLUSH ASDIRECTED PRN PRN Reason: Keep Vein Open - Interaction Disposition, : [place] in Room with Family Infant Interaction: Holding Feeding: Breastfed ; Nursed Well Support Person: - Recovery Exam Fundal Tone: Firm Fundal Level: 2 Fingerbreadths Below Umbilicus Fundal Placement: Midline Lochia Amount: Scant, Small Lochia Color: Rubra/Red Perineum Description: Other (see below) Other Perinuem Description: 2nd degree with repair Episiotomy/Laceration: Approximated Bladder Status: Voiding Urinary Elimination: Voided - Exam General: Alert, Oriented, Cooperative GI/Abdominal Exam: Soft, Non-Tender Extremities: Normal Inspection Skin: Warm, Dry, Intact - Problem List & Annotations (1) 39 weeks gestation of SNOMED Code(s): 31196851 Code(s): Z3A.39 - 39 WEEKS GESTATION OF Status: Acute Current Visit: Yes (2) Normal labor SNOMED Code(s): 74537899 Code(s): O80 - ENCOUNTER FOR FULL-TERM UNCOMPLICATED DELIVERY; Z37.9 - OUTCOME OF DELIVERY, UNSPECIFIED Status: Acute Current Visit: Yes (3) Vaginal delivery SNOMED Code(s): 663258793 Code(s): O80 - ENCOUNTER FOR FULL-TERM UNCOMPLICATED DELIVERY Status: Acute Current Visit: Yes - Problem List Review Problem List Initiated/Reviewed/Updated: Yes - My Orders Last 24 Hours: My Active Orders 06/01/20 10:33 Heat Therapy [OM.PC] PRN - Assessment Assessment:: PPD#2 - Plan Plan:: * Routine cares * Breast feeding * Discharge home today
[2020-06-02] MEDS: Ibuprofen 600 MG Tab PO PRN ×2 (10:44→17:34)
[2020-06-02] MEDS: Benzocaine/Menthol 20%-0.5% Spray 56 GM Canister TOP PRN (17:35)
[2020-06-02] MEDS: Witch Hazel Medicated Pads 40/Jar TOP PRN (17:35)
== END 2020-06-02 19:13 | disposition home or self-care (01) | DRG 560 ==
LOC: JD.OB 04:34 → JD.OBCHECK 04:34 → JD.OB 05:14 → OBSVTOIN 08:06 → JD.OB 08:07
PROVIDERS: ADMIT Obstetrics & Gynecology; ATTEND Obstetrics & Gynecology
PROC: 10E0XZZ Delivery of Products of Conception, External Approach (ICD-10-PCS; principal; 2020-05-31)
PROC: 10907ZC Drainage of Amniotic Fluid, Therapeutic from Products of Conception, Via Natural or Artificial Opening (ICD-10-PCS; 2020-05-31)
PROC: 0KQM0ZZ Repair Perineum Muscle, Open Approach (ICD-10-PCS; 2020-05-31)
DX: O77.0 Labor and delivery complicated by meconium in amniotic fluid (principal); Z3A.39 39 weeks gestation of pregnancy; Z37.0 Single live birth; O70.1 Second degree perineal laceration during delivery; Z11.59 Encounter for screening for other viral diseases
CPT/HCPCS: 36415; 59025; 59409; 85025; 86592; A9270-GY; J2210; J2590; J7120; U0002

== ENCOUNTER 2022-03-03 01:47 | Inpatient (IN) | payer BC ==
[2022-03-03] MEDS ORDERED: Ondansetron 4 MG/2 ML SDV IVPUSH PRN (02:32)
[2022-03-03] MEDS ORDERED: Sodium Chloride 0.9% 10 ML Syringe FLUSH PRN (02:32)
[2022-03-03] MEDS ORDERED: Nalbuphine HCl 10 MG/ 1ML Amp IVPUSH PRN (02:32)
[2022-03-03] MEDS ORDERED: Oxytocin/Lactated Ringers 10 UNIT/1,000 ML BAG IV SCH ×3 (02:45→12:00)
[2022-03-03] MEDS: Lactated Ringers 1,000 ML IV SCH ×3 (02:50→04:47)
[2022-03-03] MEDS ORDERED: diphenhydrAMINE 50 MG/ML SDV IVPUSH PRN (03:29)
[2022-03-03] MEDS ORDERED: Bupivacaine/fentaNYL/NS 100 ML Bag EPIDUR PRN (03:29)
[2022-03-03] MEDS ORDERED: ePHEDrine 50 MG/ML SDV IVPUSH PRN (03:29)
[2022-03-03] MEDS ORDERED: fentaNYL 100 MCG/2 ML SDV EPIDUR PRN (03:29)
[2022-03-03] MEDS ORDERED: Sodium Chloride 0.9% 10 ML Syringe FLUSH SCH (09:00)
[2022-03-03] MEDS ORDERED: Bupivacaine 0.25% 10 ML SDV ONE (11:00)
[2022-03-03] MEDS ORDERED: Benzocaine/Menthol 20%-0.5% Spray 78 GM Cannister TOP PRN (11:56)
[2022-03-03] MEDS ORDERED: Acetaminophen 325 MG Tab PO PRN (11:56)
[2022-03-03] MEDS: Witch Hazel Medicated Pads 40/Jar TOP PRN (13:23)
[2022-03-03] MEDS: Ibuprofen 600 MG Tab PO PRN (18:40)
[2022-03-04] MEDS: Ibuprofen 600 MG Tab PO PRN ×2 (03:19→11:13)
[2022-03-04] MEDS: Witch Hazel Medicated Pads 40/Jar TOP PRN (08:08)
[2022-03-04] MEDS ORDERED: Prenatal Multivitamin with Calcium/Folic Acid/Iron Tab PO SCH (09:00)
== END 2022-03-04 17:58 | disposition home or self-care (01) | DRG 560 ==
LOC: JD.OBCHECK 01:47 → JD.OB 01:50 → JD.OBCHECK 02:32 → OBSVTOIN 11:17 → JD.OB 11:18
PROVIDERS: ADMIT Obstetrics & Gynecology; ATTEND Obstetrics & Gynecology
PROC: 10E0XZZ Delivery of Products of Conception, External Approach (ICD-10-PCS; principal; 2022-03-03)
PROC: 0HQ9XZZ Repair Perineum Skin, External Approach (ICD-10-PCS; 2022-03-03)
PROC: 3E0R3BZ Introduction of Anesthetic Agent into Spinal Canal, Percutaneous Approach (ICD-10-PCS; 2022-03-03)
PROC: 10907ZC Drainage of Amniotic Fluid, Therapeutic from Products of Conception, Via Natural or Artificial Opening (ICD-10-PCS; 2022-03-03)
DX: O69.81X0 Labor and delivery complicated by cord around neck, without compression, not applicable or unspecified (principal); Z3A.39 39 weeks gestation of pregnancy; Z37.0 Single live birth; O70.0 First degree perineal laceration during delivery; O76 Abnormality in fetal heart rate and rhythm complicating labor and delivery; O66.0 Obstructed labor due to shoulder dystocia
CPT/HCPCS: 01967; 36415; 36600; 51702; 59025; 59409; 82803; 85025; 86592; 86850; 86900; 86901; A9270-GY; J2590; J3010; J3490; J7120